=== PATIENT | male | born 1940 | race Caucasian/White ===

== ENCOUNTER → 2017-11-26 | Outpatient (CLI) | payer MEDICARE ==
--- NOTE | 2017-11-26 13:59 | DIREP ---
PROCEDURE:XR BARIUM SWALLOW - MODIFIED COMPARISON:None. INDICATIONS: Parkinson's. Dysphagia. TECHNIQUE:A comprehensive fluoroscopic examination of swallowing was performed, utilizing a variety of barium consistencies. FINDINGS: ORAL PHASE:Mildly decreased transit. PHARYNGEAL PHASE:Normal. ASPIRATION:None. OTHER:Slight transit laryngeal penetration on thin liquids. No claudio aspiration FLUORO TIME: 1.8 minutes NUMBER OF IMAGES: 1 CONCLUSION:Deglutition study as detailed above. For complete details and dietary recommendations, see the speech pathologist's note. Dictated by: Khadar Ruiz DO on 11/26/2017 at 02:03 PM
== END | disposition home or self-care (01) ==
LOC: RAD 11:26
PROVIDERS: ATTEND Family Medicine
DX: G20 Parkinson's disease (principal); R13.10 Dysphagia, unspecified
CPT/HCPCS: 74230; 92611; G8996; G8997; G8998